=== PATIENT | female | born 1960 | race Caucasian/White ===

== ENCOUNTER 2020-10-11 14:54 | Outpatient (REF) | payer MEDICAID, SELFPAY ==
--- NOTE | 2020-10-11 | US_ITS ---
EXAMINATION: US THYROID CLINICAL INFORMATION: Nontoxic multinodular goiter. COMPARISON: Ultrasound-guided thyroid aspiration October [address] of the cervical spine August 2019 TECHNIQUE: Linear transducer alanis-scale and color Doppler examination with attention to the region of the thyroid. FINDINGS: SIZE: Measurements of the thyroid lobes and nodules are given in sagittal, anteroposterior and transverse dimensions respectively. Right Thyroid Lobe: 5.6 x 2.5 x 3.0 cm, volume 23.0 mL. Parenchyma: The gland echotexture is heterogeneous. Thyroid vascularity is increased. Left Thyroid Lobe: 4.3 x 1.4 x 1.7 cm, volume 5.4 mL. Parenchyma: The gland echotexture is heterogeneous. Thyroid vascularity is normal. Isthmus: 0.4 cm in maximum AP dimension. RIGHT THYROID LOBE: There are 2 nodules seen. 1. Location: Superior. Size: 0.5 x 0.4 x 0.6 cm. Nodule characteristics: Hypoechoic and heterogeneous, smooth margin, no calcification and no intranodular flow. 2. Location: Mid and inferior. Size: 3.9 x 2.5 x 2.6 cm. Nodule characteristics: Heterogeneous, smooth margin with hypoechoic rind, no calcification and positive intranodular flow. ISTHMUS: No nodules. LEFT THYROID LOBE: There is 1 nodule seen. 1. Location: Middle. Size: 0.8 x 0.5 x 0.6 cm. Nodule characteristics: Hypoechoic and heterogeneous, smooth margin, no calcification and minimal peripheral flow. NODES: No lymphadenopathy is seen in the tissue surrounding the thyroid gland. US/US thyroid IMPRESSION: Heterogeneous thyroid gland. Enlarged right lobe. Large right thyroid nodule in the mid and inferior right lobe. This does not appear appreciably changed in size from thyroid aspiration images or cervical spine CT from October 2019 and August 2019. Other smaller thyroid nodules were not appreciated and are difficult to compare.
== END 2020-10-11 14:55 | disposition home or self-care (01) ==
LOC: HO.US 14:54
PROVIDERS: PCP Internal Medicine; Visit Provider Internal Medicine Endocrinology, Diabetes & Metabolism
DX: E04.2 Nontoxic multinodular goiter (principal)
CPT/HCPCS: 76536

== ENCOUNTER → 2020-10-27 12:33 | Outpatient (BNVA) | payer MEDICAID, SELFPAY | PROVIDERS: PCP Internal Medicine; Referring Provider Internal Medicine; Visit Provider Internal Medicine Endocrinology, Diabetes & Metabolism | DX: E04.2 Nontoxic multinodular goiter (principal); E55.9 Vitamin D deficiency, unspecified | CPT/HCPCS: 99212 ==

== ENCOUNTER 2024-04-02 09:23 | Outpatient (AMB) | payer OTHER, SELFPAY ==
--- NOTE | 2024-04-02 09:25 | A.OFFVIS_ITS ---
Vital Signs 04/02/24 09:27 Height 5 ft 7 in Weight 230 lb BMI 36.0 BP 143/70 H Blood Pressure Location Lt brachial Position Sitting Respiration 14 Pulse 85 Pulse Source Pulse Oximeter Pulse Oximetry (%) 95 Oxygen Delivery Method Room Air Intake Visit Reasons: low back/right hip pain Allergies No Known Allergies [No Known Allergies*] Allergy (Verified 04/02/24 09:28) Medication List - Last Reconciled 04/02/24 by Anisha Griffin LPN cholecalciferol (vitamin D3) 25 mcg PO DAILY gabapentin 300 mg PO BID PRN lisinopril-hydrochlorothiazide 10-12.5 mg 1 tab PO BEDTIME tramadol 50 mg PO BID PRN HPI HPI low back/right hip pain: Details: 63-year-old female who presents today to the office for an evaluation of low back pain and right hip pain. She has a fluctuating history of issues in her neck/left shoulder, as well as the right lower back in the hip that radiates down the right leg. The surgical history is notable for the right proximal fibular enchondroma. She also had a C5-6 ACDF in 2000, followed by an acromionectomy surgery and a subdeltoid bursectomy of the left shoulder in 2001. She now complains of several weeks of worsening right lower back and leg pain that is worse with activity and movements. It is rated at 7-8/10 intensity on average. She has also been complaining of her legs feeling weak and her knees giving out. She has been having difficulty climbing stairs or sitting on the chairs. She also complains of left-neck pain that radiates to her left arm and forearm, associated with pins and needles, and a numbness sensation in her left hand. She has not done any physical therapy in the past. She has not completed any MRI scans recently. 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 Her job required prolonged sitting. She has not worked for the last couple weeks. She is currently on vacation for the summer. [facility] Medical History (Updated 04/05/24 @ 09:01 by Rafael Sands MD) Vitamin D deficiency Celiac disease Non-toxic multinodular goiter Surgical History (Updated 10/27/20 @ 13:09 by ALLEGRA Munguia) Hx of rotator cuff surgery Hx of laminectomy Family History (Updated 10/27/20 @ 13:09 by ALLEGRA Munguia) Father HTN (hypertension) Mother HTN (hypertension) Review of Systems Const All systems reviewed & are unremarkable except as noted in HPI and below Physical Exam Vital Signs: Last Vital Signs Pulse 85 04/02/24 09:27 Resp 14 04/02/24 09:27 BP 143/70 H 04/02/24 09:27 Pulse Ox 95 04/02/24 09:27 Oxygen Delivery Method Room Air 04/02/24 09:27 BMI result Body Mass Index 36.0 General: Appears afebrile. Alert and oriented. Mood and affect appropriate. Follows and participates in conversation appropriately. Respiratory effort is unlabored. Able to transition from sit to stand unassisted. Ambulates with bilaterally normal heel strike and toe off. Straight?leg?raises?positive?on?the?right. Tenderness on palpation overlaying?the?right greater trochanteric bursa. Office Procedures Joint Injection/Drain Joint Injection/Drain Details: Greater Trochanteric Bursa Injection, right, ultrasound guided. After informed written consent was obtained, the patient was placed in the lateral position. Pre-procedure oxygen saturation, heart rate, and blood pressure were recorded. The skin was prepped with Chloroprep, and draped in a sterile fashion. With the use of ultrasound, the greater trochanter was identified. A 21-gauge 80 mm needle was then advanced toward the trochanteric bursa under ultrasound visualization. Once in position, and after negative aspiration, 40 mg of Kenalog mixed with 0.5% ropivacaine (3mL total) was injected. There was no evidence of paresthesia throughout needle placement. The needle was withdrawn. The patient tolerated the procedure well and there was no evidence of procedural complications. The patient was observed in the procedure room for 20 minutes, vitals were stable, and discharged in stable condition. Coding Details: ?An ultrasound image of the injection was taken and stored in the permanent record. 89056 - Glenohumeral/Tronchanteric Bursa/Intraarticular (right, US guided) Procedure code (CPT) selection complete Results Reviewed Results Reviewed: No imaging is available for review. Assessment & Plan Assessment & Plan (1) Greater trochanteric pain syndrome: Code(s): M25.559 - Pain in unspecified hip Category: Medical (2) Lumbar radiculopathy: Code(s): M54.16 - Radiculopathy, lumbar region Category: Medical Plan I suspect that her pain in the back is due to nerve impingement/disc degeneration. She will continue physical therapy for 6-8 weeks. She?already?has?an?order?from?her?PCP.?If her pain continues to persist, we will order an MRI scan of the lumbar spine for further evaluation. Follow up in six weeks. If her pain symptoms improve with physical therapy, I will recommend continuing the physical therapy.? Patient is status post right GTB injection, US guided. Patient tolerated procedure well and was discharged home in stable condition with discharge instructions.? All questions were answered. Scribed for Dr. Sands by Edgardo Ding, medical advisor, on 04/02/2024. I, Dr. Sands, have personally reviewed and agree with the information entered by the scribe. Coding Level of Care Code New Pt Level 4 (28446) Diagnoses Greater trochanteric pain syndrome M25.559 Lumbar radiculopathy M54.16 CPT Codes Coding - Joint 7: 58016 - Glenohumeral/Tronchanteric Bursa/Intraarticular ([id number])
[2024-04-02 09:27] VITALS: BP 143/70; PULSE 85; RESP 14; O2SAT 95; BMI 36.0
== END 2024-04-02 10:19 | disposition home or self-care (01) ==
PROVIDERS: PCP Internal Medicine; Visit Provider Internal Medicine
DX: M25.551 Pain in right hip (principal)
CPT/HCPCS: 20611; 99204

== ENCOUNTER → 2024-04-02 09:23 | Outpatient (BNVA) | payer OTHER, SELFPAY | PROVIDERS: PCP Internal Medicine; Visit Provider Internal Medicine | DX: M25.551 Pain in right hip (principal); M54.16 Radiculopathy, lumbar region | CPT/HCPCS: 20611; 99202; J2795; J3301 ==

== ENCOUNTER 2024-04-26 12:36 | Outpatient (AMB) | payer OTHER, SELFPAY ==
--- NOTE | 2024-04-26 12:57 | A.OFFVIS_ITS ---
Vital Signs 04/26/24 12:58 Height 5 ft 7 in Weight 229 lb 0.964 oz BMI 35.9 BP 120/84 Blood Pressure Location Lt brachial Position Sitting Pulse 67 Pulse Source Pulse Oximeter Intake Visit Reasons: Multinodular goiter-confirmed Intake Note: Patient present today for Multi nodular goiter follow up visit. [employer] Required: No Accompanied by: Self / Same As Patient Allergies No Known Allergies [No Known Allergies*] Allergy (Verified 04/26/24 13:04) Medication List - Last Reconciled 04/26/24 by Luis Nath MD cholecalciferol (vitamin D3) 25 mcg PO DAILY gabapentin 300 mg PO BID PRN lisinopril-hydrochlorothiazide 10-12.5 mg 1 tab PO BEDTIME tramadol 50 mg PO BID PRN HPI Comments Details: 63-year-old female, today for follow-up visit, she was last seen on 10/22/2019 for nontoxic multinodular goiter. The patient last saw Dr. Roger on 10/27/2020 She is feeling well, she has no complaints. She had a fine-needle aspiration right side nodule 4.2 x 2.6 x 3 cm on 10/07/2019 which is consistent with benign follicular nodule Creswell category 2. She has past medical history of obesity, celiac disease, vitamin-D deficiency. Cervical disc disease status post fusion. She reports that since last summer she has been feeling tired, achy. She also had some heat intolerance. She denies denies cold or heat intolerance, she lost 7 lb since last visit. She is postmenopausal, she denies diarrhea, constipation, imsomnia, positive fatigue, positive dry skin, she denies dysphagia, dyspnea, dysphonia, d enies tremors, she reports occasional palpitations, denies irritability, anxiety. She reports not been 100% adherent to the gluten free diet. Family History: There is no family history of thyroid disease or nodules. 10/11/2020 US THYROID Right Thyroid Lobe: 5.6 x 2.5 x 3.0 cm, volume 23.0 mL. Parenchyma: The gland echotexture is heterogeneous. Thyroid vascularity is increased. Left Thyroid Lobe: 4.3 x 1.4 x 1.7 cm, volume 5.4 mL. Parenchyma: The gland echotexture is heterogeneous. Thyroid vascularity is normal. Isthmus: 0.4 cm in maximum AP dimension. RIGHT THYROID LOBE: There are 2 nodules seen. 1. Location: Superior. Size: 0.5 x 0.4 x 0.6 cm. Nodule characteristics: Hypoechoic and heterogeneous, smooth margin, no calcification and no intranodular flow. 2. Location: Mid and inferior. Size: 3.9 x 2.5 x 2.6 cm. Nodule characteristics: Heterogeneous, smooth margin with hypoechoic rind, no calcification and positive intranodular flow. ISTHMUS: No nodules. LEFT THYROID LOBE: There is 1 nodule seen. 1. Location: Middle. Size: 0.8 x 0.5 x 0.6 cm. Nodule characteristics: Hypoechoic and heterogeneous, smooth margin, no calcification and minimal peripheral flow. NODES: No lymphadenopathy is seen in the tissue surrounding the thyroid gland. Laboratory Tests 08/26/19 08/26/19 12:18 12:18 Free T4 1.01 TSH 3rd Generation 1.60 Thyroglobulin Antibody <1 Thyroid Peroxidase Ab 2 [facility] Medical History (Updated 04/05/24 @ 09:01 by Rafael Sands MD) Vitamin D deficiency Celiac disease Non-toxic multinodular goiter Surgical History (Updated 10/27/20 @ 13:09 by ALLEGRA Munguia) Hx of rotator cuff surgery Hx of laminectomy Family History (Updated 10/27/20 @ 13:09 by ALLEGRA Munguia) Father HTN (hypertension) Mother HTN (hypertension) Physical Exam Vital Signs: Last Vital Signs Pulse 67 04/26/24 12:58 BP 120/84 04/26/24 12:58 BMI result Body Mass Index 35.9 Const Other: Thyroid gland is normal size weighs about 15 g. The right lobe is full to palpation Assessment & Plan Assessment & Plan (1) Non-toxic multinodular goiter: Code(s): E04.2 - Nontoxic multinodular goiter Category: Medical Plan: This 63-year-old white female with a history of multinodular goiter with a dominant right thyroid nodule status post FNA in 2019 with benign cytology. She appears to be clinically euthyroid. Recent thyroid ultrasound [facility] in last year shows stability in the size of the nodule Plan is to check TSH and free T4. . Will have patient follow up with Dr. Kim who starting in May 2024 as expert and thyroid ultrasound to determine if repeat biopsy is necessary or simply observation Orders: Orders Free T4 (Free Thyroxine) 04/25/24 E04.2 - Nontoxic multinodular goiter Thyroid Stimulating Hormone 04/25/24 E04.2 - Nontoxic multinodular goiter Coding Level of Care Code Est Pt Level 3 (63624) Diagnoses Non-toxic multinodular goiter E04.2
[2024-04-26 12:58] VITALS: BP 120/84; PULSE 67; BMI 35.9
== END 2024-04-26 13:23 | disposition home or self-care (01) ==
PROVIDERS: PCP Internal Medicine; Visit Provider Internal Medicine Endocrinology, Diabetes & Metabolism
DX: E04.2 Nontoxic multinodular goiter (principal)
CPT/HCPCS: 99213

== ENCOUNTER → 2024-04-26 12:36 | Outpatient (BNVA) | payer OTHER, SELFPAY | PROVIDERS: PCP Internal Medicine; Visit Provider Internal Medicine Endocrinology, Diabetes & Metabolism | DX: E04.2 Nontoxic multinodular goiter (principal) | CPT/HCPCS: 99212 ==

== ENCOUNTER 2024-05-11 14:33 | Outpatient (REF) | payer OTHER, SELFPAY ==
--- NOTE | ~2024-05-11 | US_ITS ---
EXAMINATION: US THYROID CLINICAL INFORMATION: Nontoxic multinodular goiter. COMPARISON: Thyroid ultrasound 10/11/2020. Ultrasound-guided thyroid biopsy 10/07/2019. TECHNIQUE: Linear transducer grayscale and color Doppler examination with attention to the region of the thyroid. FINDINGS: SIZE: Measurements of the thyroid lobes and nodules are given in sagittal, anteroposterior and transverse dimensions respectively. Right Thyroid Lobe: 5.9 x 2.6 x 2.9 cm, volume 22.8 mL. Previously 5.6 x 2.5 x 3.0 cm, volume 23.0 mL. Parenchyma: The gland echotexture is homogeneous. Thyroid vascularity is increased. Left Thyroid Lobe: 4.8 x 1.3 x 1.6 cm, volume 5.3 mL. Previously 4.3 x 1.4 x 1.7 cm, volume 5.4 mL. Parenchyma: The gland echotexture is homogeneous. Thyroid vascularity is normal. Isthmus: 0.3 cm in maximum AP dimension. Previously 0.4 cm. Estimated total number of nodules greater than or equal to 1 cm: 1. Manager Of Internal nodules are described as follows: 1. Location: Right superior. Size: 0.7 x 0.5 x 0.8 cm, volume 0.1 mL. Previously: 0.5 x 0.4 x 0.6 cm, volume 0.1 mL. Nodule characteristics: Composition: Mixed cystic and solid (1). Echogenicity: Hypoechoic (2). Shape: Not taller than wide (0). Margins: Smooth (0). Echogenic Foci: None (0). ACR TI-RADS total points: 3 ACR TI-RADS category: 3 Significant change in size (>/= 20% in 2 dimensions and minimal increase of 2 mm or 50% or greater increase in volume): no Change in features: no Change in ACR TI-RADS risk category: not applicable 2. Location: Right mid. Size: 2.8 x 2.4 x 3.5 cm, volume 12.2 mL. Previously: 3.9 x 2.5 x 2.6 cm, volume 13.3 mL. Nodule characteristics: Composition: Solid/almost completely solid (2). Echogenicity: Isoechoic (1). Shape: Not taller than wide (0). Margins: Smooth (0). Echogenic Foci: None (0). ACR TI-RADS total points: 3 ACR TI-RADS category: 3 Significant change in size (>/= 20% in 2 dimensions and minimal increase of 2 mm or 50% or greater increase in volume): no Change in features: no Change in ACR TI-RADS risk category: not applicable 3. Location: Left mid/inferior. Size: 0.9 x 0.6 x 1.1 cm, volume 0.3 mL. Previously: 0.8 x 0.5 x 0.6 cm, volume 0.1 mL. Nodule characteristics: Composition: Mixed cystic and solid (1). Echogenicity: Hypoechoic (2). Shape: Not taller than wide (0). Margins: Smooth (0). Echogenic Foci: None (0). ACR TI-RADS total points: 3 ACR TI-RADS category: 3 Significant change in size (>/= 20% in 2 dimensions and minimal increase of 2 mm or 50% or greater increase in volume): yes Change in features: no Change in ACR TI-RADS risk category: not applicable NODES: No lymphadenopathy is seen in the tissue surrounding the thyroid gland. US/US thyroid IMPRESSION: Diffusely heterogeneous, enlarged, multinodular thyroid gland. A 3.5 cm right mid TR 3 nodule redemonstrated and meets criteria for biopsy. Fine-needle aspiration recommended if not already performed. Correlation with prior biopsy results recommended to determine further management. ACR TI-RADS RECOMMENDATION REFERENCE: Ultrasound-guided fine-needle aspiration, follow up ultrasound, no further followup. * TR1 (0 point) and TR2 (2 points): No FNA or followup * TR3 (3 points): FNA if more than or equal to 2.5 cm in maximum dimension, follow up ultrasound in 1, 3 and 5 years if 1.5 to 2.4 cm in maximum dimension. * TR4 (4-6 points): FNA if more than or equal to 1.5 cm in maximum dimension, follow up ultrasound in 1, 2, 3 and 5 years if 1 to 1.4 cm in maximum dimension. * TR5 (more than or equal to 7 points): FNA if more than or equal to 1 cm in maximum dimension, follow up ultrasound every year for 5 years if 0.5 to 0.9 cm in maximum dimension. * TR3, TR4 or TR5 nodules that are below the size threshold for follow up receive no followup.
[2024-05-11 16:11] LABS: Free T4 (Free Thyroxine) 1.03 ng/dL (0.71-1.85); Thyroid Stimulating Hormone 1.04 uIU/mL (0.32-4.0)
== END 2024-05-11 14:34 | disposition home or self-care (01) ==
LOC: HO.US 14:33
PROVIDERS: PCP Internal Medicine; Visit Provider Internal Medicine Endocrinology, Diabetes & Metabolism
DX: E04.2 Nontoxic multinodular goiter (principal)
CPT/HCPCS: 36415; 76536; 84439; 84443

== ENCOUNTER 2024-06-21 09:10 | Outpatient (REF) | payer OTHER, SELFPAY ==
--- NOTE | ~2024-06-21 | XR_ITS ---
EXAMINATION: XR BILATERAL HIPS WITH AP PELVIS CLINICAL INFORMATION: Pain in the right hip COMPARISON: X-rays of the hips August 2019 TECHNIQUE: AP and lateral views of each hip axial FINDINGS: Right hip: The hip joint and surrounding bones soft tissues are normal. Left hip: The hip joint and surrounding bone and soft tissues are normal. XR/XR hips SOPHIA min 3V IMPRESSION: RIGHT HIP: Normal. LEFT HIP: Normal. Electronically signed by: Yanick uHnt MD 07/15/2024 07:27 AM EDT RP
--- NOTE | ~2024-06-21 | XR_ITS ---
EXAMINATION: XR KNEE AP STANDING CLINICAL INFORMATION: Pain in right knee. COMPARISON: 08/11/2019. TECHNIQUE: AP standing view of bilateral knees. FINDINGS: AP Standing View Left Knee: Tiny medial and lateral marginal osteophytes. Mild narrowing of medial and lateral compartments. Right Knee: Redemonstration of postoperative findings status post resection of proximal aspect of the fibula down to the midshaft. Redemonstration of suture within the fibular aspect of the tibial metaphysis. Moderate narrowing of the lateral compartment with lateral marginal osteophytes. Faint calcification/chondrocalcinosis in the lateral compartment. XR/XR knee standing BI IMPRESSION: 1. Mild degenerative changes left knee. 2. Moderate degenerative changes right knee. Electronically signed by: Jocelyn Miguel MD 08/11/2024 11:45 AM [facility]IV[facility]
== END 2024-06-21 09:11 | disposition home or self-care (01) ==
LOC: HO.XRAY 09:10
PROVIDERS: PCP Internal Medicine; Visit Provider Internal Medicine
DX: M25.561 Pain in right knee (principal); M25.562 Pain in left knee; M25.551 Pain in right hip; M25.552 Pain in left hip; M54.16 Radiculopathy, lumbar region
CPT/HCPCS: 73522; 73565; 99212

== ENCOUNTER 2024-06-21 09:10 | Outpatient (AMB) | payer OTHER, SELFPAY ==
--- NOTE | 2024-06-21 09:13 | A.OFFVIS_ITS ---
Vital Signs 06/21/24 09:15 Height 5 ft 7 in Weight 229 lb BMI 35.9 BP 122/84 Blood Pressure Location Lt brachial Position Sitting Respiration 16 Pulse 90 Pulse Source Pulse Oximeter Pulse Oximetry (%) 96 Oxygen Delivery Method Room Air Intake Visit Reasons: low back/right hip pain Allergies No Known Allergies [No Known Allergies*] Allergy (Verified 06/21/24 09:17) Medication List - Last Reconciled 06/21/24 by Anisha Griffin LPN cholecalciferol (vitamin D3) 25 mcg PO DAILY lisinopril-hydrochlorothiazide 10-12.5 mg 1 tab PO BEDTIME HPI HPI low back/right hip pain: Details: 63-year-old female who presents today to the office for a low back and right hip pain. The patient reports 60-70% relief following the procedure for three-four weeks. She started physical therapy in April 2024 with minimal benefit for six weeks and eventually stopped due to the fact that it was not helping with pain.? She reports bilateral hips and lower back pain. She has difficulty climbing up and down the stairs as she lives on the second floor. She has occasional tingling in her right leg down the right foot. She is unable to bear weight on her sides as it is bothersome. She had an x-ray of the hips in the past, but the result is not available today to review.? Past procedures 04/02/2024: Greater Trochanteric Bursa Injection, right, ultrasound guided: 60- 70% relief 3-4 weeks. [facility] Medical History (Updated 06/21/24 @ 09:53 by Rafael Sands MD) Vitamin D deficiency Celiac disease Non-toxic multinodular goiter Surgical History Hx of rotator cuff surgery Hx of laminectomy Family History Father HTN (hypertension) Mother HTN (hypertension) Review of Systems Const All systems reviewed & are unremarkable except as noted in HPI and below Physical Exam Vital Signs: Last Vital Signs Pulse 90 06/21/24 09:15 Resp 16 06/21/24 09:15 BP 122/84 06/21/24 09:15 Pulse Ox 96 06/21/24 09:15 Oxygen Delivery Method Room Air 06/21/24 09:15 BMI result Body Mass Index 35.9 General: Appears afebrile. Alert and oriented. Mood and affect appropriate. Follows and participates in conversation appropriately. Respiratory effort is unlabored. Able to transition from sit to stand unassisted. Ambulates with bilaterally normal heel strike and toe off. Results Reviewed Results Reviewed: No imaging is available for review. Assessment & Plan Assessment & Plan (1) Bilateral hip pain: Code(s): M25.551 - Pain in right hip; M25.552 - Pain in left hip Category: Medical (2) Bilateral knee pain: Code(s): M25.561 - Pain in right knee; M25.562 - Pain in left knee Category: Medical (3) Lumbar radiculopathy: Code(s): M54.16 - Radiculopathy, lumbar region Category: Medical Plan I ordered an MRI scan of the lumbar spine and an x-ray of the knee and hips today for further evaluation of her pain symptoms not responsive to 6 weeks of guided physical therapy. She will follow up after imaging. The patient will receive a call to schedule an appointment for MRI scan. Scribed for Dr. Sands by Edgardo Ding, medical office asst, on 06/21/2024. I, Dr. Sands, have personally reviewed and agree with the information entered by the scribe. Orders: Orders MR lumbar spine wo con 06/21/24 M54.16 - Radiculopathy, lumbar region XR hips SOPHIA min 3V 06/21/24 M25.551 - Pain in right hip, M25.552 - Pain in left hip XR knee standing BI 06/21/24 M25.561 - Pain in right knee, M25.562 - Pain in left knee Coding Level of Care Code Est Pt Level 3 (13946) Diagnoses Bilateral hip pain M25.551; M25.552 Bilateral knee pain M25.561; M25.562 Lumbar radiculopathy M54.16
[2024-06-21 09:15] VITALS: BP 122/84; PULSE 90; RESP 16; O2SAT 96; BMI 35.9
== END 2024-06-21 09:56 | disposition home or self-care (01) ==
LOC: HO.PMC 09:10
PROVIDERS: PCP Internal Medicine; Visit Provider Internal Medicine
DX: M25.551 Pain in right hip (principal); M25.552 Pain in left hip; M25.561 Pain in right knee; M25.562 Pain in left knee; M54.16 Radiculopathy, lumbar region
CPT/HCPCS: 99213

== ENCOUNTER → 2024-07-16 17:42 | Outpatient (BNV) | payer OTHER, SELFPAY | PROVIDERS: PCP Internal Medicine; Visit Provider Radiology Diagnostic Radiology | DX: M54.16 Radiculopathy, lumbar region (principal) | CPT/HCPCS: 72148 ==

== ENCOUNTER 2024-07-16 17:57 | Outpatient (REF) | payer OTHER, SELFPAY ==
--- NOTE | ~2024-07-16 | MR_ITS ---
EXAMINATION: MR LUMBAR SPINE WITHOUT CONTRAST CLINICAL INFORMATION: Radiculopathy, lumbar region. COMPARISON: None available. Correlated to x-ray dated August 11, 2019. TECHNIQUE: MRI of the lumbar spine was obtained using routine sequences without contrast. FINDINGS: Submitted for interpretation on September 14, 2024. Last rib-bearing vertebra labeled T12. Castellvi type II sacralization. Bone marrow inhomogeneity. No bone marrow STIR signal abnormality. Multilevel marginal osteophyte formation and disc desiccation. There is a subtle grade 1 anterolisthesis L4-5. The conus medullaris and at inferior endplate of L1 with normal signal. T11-12: No disc herniation. No neuroforamina stenosis. T12-L1: No disc herniation. No neuroforamina stenosis. L1-2: Left subarticular broad-based disc herniation. No compression upon neural elements. L2-3: Broad-based disc bulging. Facet joint hypertrophy. No central spinal canal stenosis. Bilateral neuroforamina narrowing. L3-4: Broad-based disc bulging. Facet joint hypertrophy. Reduced AP diameter of the thecal sac and neuroforamina. No compression upon neural elements. L4-5: Broad-based disc bulging. Facet joint hypertrophy. No compression upon neural elements. L5-S1: Transitional/sacralized vertebra. No compression upon neural elements. No prevertebral compartment hematoma, mass or fluid collection. Hyperintense T2 lesions in the left kidney. MR/MR lumbar spine wo con IMPRESSION: Multilevel spondylosis without acute fracture or compression upon neural elements. Electronically signed by: Gerson Rosas MD 09/14/2024 01:20 PM [facility]
== END 2024-07-16 17:58 | disposition home or self-care (01) ==
LOC: HO.MRI 17:57
PROVIDERS: PCP Internal Medicine; Visit Provider Internal Medicine
DX: M54.16 Radiculopathy, lumbar region (principal)
CPT/HCPCS: 72148

== ENCOUNTER 2024-07-26 11:19 | Outpatient (AMB) | payer OTHER, SELFPAY ==
--- NOTE | 2024-07-26 11:22 | A.OFFVIS_ITS ---
Vital Signs 07/26/24 11:23 Height 5 ft 7 in Weight 225 lb BMI 35.2 BP 126/82 Blood Pressure Location Lt brachial Position Sitting Respiration 16 Pulse 89 Pulse Source Pulse Oximeter Pulse Oximetry (%) 98 Oxygen Delivery Method Room Air Intake Visit Reasons: MRI FU Allergies No Known Allergies [No Known Allergies*] Allergy (Verified 07/26/24 11:24) Medication List - Last Reconciled 07/26/24 by Anisha Griffin LPN cholecalciferol (vitamin D3) 25 mcg PO DAILY lisinopril-hydrochlorothiazide 10-12.5 mg 1 tab PO BEDTIME HPI HPI MRI FU: Details: 64-year-old female who presents today to the office for follow up of an MRI scan. She reports tightness and stiffness in her back, especially going down the stairs. She has been doing stretching exercises at home. She had an x-ray done last day. She has tried PT in the past with no relief. She denies any inciting incident or trauma in the past. She had a surgery in . She is trying to lose weight. 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 Past procedures 04/02/2024: Greater Trochanteric Bursa Injection, right, ultrasound guided: 60- 70% relief 3-4 weeks. COUNT INCLUDES THE [facility] Medical History (Updated 08/17/24 @ 14:47 by Rafael Sands MD) Vitamin D deficiency Celiac disease Non-toxic multinodular goiter Surgical History Hx of rotator cuff surgery Hx of laminectomy Family History Father HTN (hypertension) Mother HTN (hypertension) Review of Systems Const All systems reviewed & are unremarkable except as noted in HPI and below Physical Exam Vital Signs: Last Vital Signs Pulse 89 07/26/24 11:23 Resp 16 07/26/24 11:23 BP 126/82 07/26/24 11:23 Pulse Ox 98 07/26/24 11:23 Oxygen Delivery Method Room Air 07/26/24 11:23 BMI result Body Mass Index 35.2 General: Appears afebrile. Alert and oriented. Mood and affect appropriate. Follows and participates in conversation appropriately. Respiratory effort is unlabored. Able to transition from sit to stand unassisted. Ambulates with bilaterally normal heel strike and toe off. Lumbar extension and facet loading reproduce pain in her lower back. Results Reviewed Results Reviewed: No radiology interpretation. My personal interpretation is noted. There is multilevel lumbar spondylosis associated with significant facet arthritis and multifidus scarring in the lower lumbar spine. There is no neural compression or compromise at any level. Assessment & Plan Assessment & Plan (1) Bilateral knee pain: Code(s): M25.561 - Pain in right knee; M25.562 - Pain in left knee Category: Medical (2) Lumbar spondylosis: Code(s): M47.816 - Spondylosis without myelopathy or radiculopathy, lumbar region Category: Medical (3) Dysfunction of the multifidus muscle of lumbar region: Code(s): M62.85 - Dysfunction of the multifidus muscles, lumbar region Category: Medical Plan Discussed physical therapy vs. peripheral nerve stimulator vs. cortisone injections as possible treatment options. Will schedule her for bilateral cortisone knee injection, US-guided. Discussed the risks and benefits of the procedure with the patient in detail. All questions were answered. The patient is on board with the plan. For her axial low back pain that appears to be mechanical in nature secondary to facet degeneration and associated multiple atrophy, I recommended a trial of temporary medial branch nerve stimulation in the lumbar spine. We will submit for insurance authorization and proceed with the right side first. I also recommended lifestyle modification, including stretching and strengthening exercises, weight loss, and massages. Justification for interventional therapy: ? Patient with average pain > 6/10 ? Patient has exhausted conservative therapy ? Patient continuing home exercise program . Patient has a good understanding of their pain condition and has appropriate mental and social support Scribed for Dr. Sands by Edgardo Ding, medical asst, on 07/26/2024. I, Dr. Sands, have personally reviewed and agree with the information entered by the scribe. Coding Level of Care Code Est Pt Level 4 (86120) Diagnoses Bilateral knee pain M25.561; M25.562 Lumbar spondylosis M47.816 Dysfunction of the multifidus muscle of lumbar region M62.85
[2024-07-26 11:23] VITALS: BP 126/82; PULSE 89; RESP 16; O2SAT 98; BMI 35.2
== END 2024-07-26 12:06 | disposition home or self-care (01) ==
LOC: HO.PMC 11:19
PROVIDERS: PCP Internal Medicine; Visit Provider Internal Medicine
DX: M25.561 Pain in right knee (principal); M25.562 Pain in left knee; M47.816 Spondylosis without myelopathy or radiculopathy, lumbar region; M62.85 Dysfunction of the multifidus muscles, lumbar region
CPT/HCPCS: 99214

== ENCOUNTER → 2024-07-26 11:19 | Outpatient (BNVA) | payer OTHER, SELFPAY | PROVIDERS: PCP Internal Medicine; Visit Provider Internal Medicine | DX: M25.561 Pain in right knee (principal); M25.562 Pain in left knee; M47.816 Spondylosis without myelopathy or radiculopathy, lumbar region; M62.85 Dysfunction of the multifidus muscles, lumbar region | CPT/HCPCS: 99212 ==

== ENCOUNTER 2024-08-05 06:17 | Outpatient (REF) | payer OTHER, SELFPAY | END 2024-08-05 06:18 | disposition home or self-care (01) | LOC: CF 06:17 | PROVIDERS: Visit Provider Internal Medicine | DX: M25.561 Pain in right knee (principal); M25.562 Pain in left knee | CPT/HCPCS: 20610; 20611; J2003; J2795; J3300; J3301 ==

== ENCOUNTER 2024-08-05 11:39 | Outpatient (AMB) | payer OTHER, SELFPAY ==
[2024-08-05 11:47] VITALS: BP 145/87; PULSE 80; O2SAT 98
--- NOTE | 2024-08-05 11:47 | A.OFFVIS_ITS ---
Vital Signs 08/05/24 11:47 08/05/24 12:27 BP 145/87 H 143/89 H Blood Pressure Location Rt brachial Rt brachial Position Sitting Sitting Pulse 80 96 Pulse Source Pulse Oximeter Pulse Oximeter Pulse Oximetry (%) 98 77 L Oxygen Delivery Method Room Air Room Air Intake Visit Reasons: Todd knee injections Allergies No Known Allergies [No Known Allergies*] Allergy (Verified 07/26/24 11:24) HPI HPI Todd knee injections: Details: Patient presents for scheduled procedure. Denies any recent cough, cold, infection, fever or other significant changes in medical history since last office visit. [facility] Medical History (Updated 06/21/24 @ 09:53 by Rafael Sands MD) Vitamin D deficiency Celiac disease Non-toxic multinodular goiter Surgical History Hx of rotator cuff surgery Hx of laminectomy Family History Father HTN (hypertension) Mother HTN (hypertension) Physical Exam Vital Signs: Last Vital Signs Pulse 96 08/05/24 12:27 BP 143/89 H 08/05/24 12:27 Pulse Ox 77 L 08/05/24 12:27 Oxygen Delivery Method Room Air 08/05/24 12:27 Office Procedures AMB Joint Injection/Aspiration Joint Injection/Aspiration Primary Site: left knee Secondary Site: right knee Prep: site was prepped using sterile technique Injected: 40 mg of, Kenalog, with 3 mL of (0.25% ropivacaine) and in the joint (On each side) Approach Used: other (Ultrasound guided, suprapatellar) Procedure: The patient tolerated the procedure well Coding Details: Images of the ultrasound guided injections were saved to the patient's record. 45578 - Large joint (Bilateral) Procedure code (CPT) selection complete Office Meds Kenalog 40 mg/mL suspension for injection Performing Provider: Rafael Sands MD [place] [facility] [place] [facility] Administered by: Rafael Sands MD on 08/05/24 13:00 Dose Route Admin Location Dispensed Lot Number Expiration Date [facility] [employer] 80 mg intra-articular 2 mL Assessment & Plan Assessment & Plan (1) Bilateral knee pain: Code(s): M25.561 - Pain in right knee; M25.562 - Pain in left knee Category: Medical Plan Patient is status post bilateral ultrasound-guided intra-articular knee injections. Patient tolerated procedure well and was discharged home in stable condition with discharge instructions. All questions were answered. We will follow-up via telephone or in clinic to assess response to therapy. A follow-up appointment was made during today's visit. Orders: Orders US guide needle placement Today Lorie Street, REFRIGERATED CARGO CLERK, VICE PRESIDENT COMPLIANCE M25.561 - Pain in right knee, M25.562 - Pain in left knee AMB Joint Injection/Aspiration Today Rafael Sands MD M25.561 - Pain in right knee, M25.562 - Pain in left knee Medications: New Kenalog (triamcinolone acetonide) 80 mg (2 mL) intra-articular ONCE 2 mL 0RF NS Rafael Sands MD M25.561 - Pain in right knee, M25.562 - Pain in left knee Coding Level of Care Code Procedure Only Diagnoses Bilateral knee pain M25.561; M25.562 CPT Codes Coding - 94158 Large joint: 10774 - Large joint ([id number])
[2024-08-05 12:27] VITALS: BP 143/89; PULSE 96; O2SAT 77
== END 2024-08-05 12:27 | disposition home or self-care (01) ==
LOC: HO.PMCPRC 11:39
PROVIDERS: PCP Internal Medicine; Visit Provider Internal Medicine
DX: M25.561 Pain in right knee (principal); M25.562 Pain in left knee
CPT/HCPCS: 20611

== ENCOUNTER 2024-09-01 09:38 | Outpatient (AMB) | payer OTHER, SELFPAY ==
[2024-09-01 09:48] VITALS: BP 161/87; PULSE 88; O2SAT 95; BMI 34.5
--- NOTE | 2024-09-01 09:48 | MHC.OFFVIS ---
Vital Signs 09/01/24 09:48 Height 5 ft 7 in Weight 220 lb BMI 34.5 BP 161/87 H Blood Pressure Location Rt brachial Position Sitting Pulse 88 Pulse Source Pulse Oximeter Pulse Oximetry (%) 95 Oxygen Delivery Method Room Air Intake Visit Reasons: s/p bassem knee injections Allergies No Known Allergies [No Known Allergies*] Allergy (Verified 09/01/24 09:48) Medication List - Last Reconciled 09/01/24 by Alisa Wray cholecalciferol (vitamin D3) 25 mcg PO DAILY lisinopril-hydrochlorothiazide 10-12.5 mg 1 tab PO BEDTIME HPI HPI s/p bassem knee injections: Details: 64-year-old female who presents to the office today for status post bilateral ultrasound-guided intra-articular knee injections. The patient reports >50% relief following the procedure. She reports she still continues to have stiffness in the knees upon waking up in the morning which is bothersome. She has been doing stretches and exercises at home. She notices her knee pain has improved and experiences no pain in the knee on some days. She reports having axial low back pain for which we discussed a trial of temporary medial branch nerve stimulation in the lumbar spine as a possible treatment option at her last visit. Our initial prior authorization request was denied so the case is now pending with [facility] our care. Past procedures 08/05/24: Bilateral ultrasound-guided intra-articular knee injections: >50% relief. 04/02/24: Greater Trochanteric Bursa Injection, right, ultrasound guided: 60-70% relief 3-4 weeks. [facility] Medical History (Updated 08/17/24 @ 14:47 by Raafel Sands MD) Vitamin D deficiency Celiac disease Non-toxic multinodular goiter Surgical History Hx of rotator cuff surgery Hx of laminectomy Family History Father HTN (hypertension) Mother HTN (hypertension) Review of Systems Const All systems reviewed & are unremarkable except as noted in HPI and below Physical Exam Vital Signs: Last Vital Signs Pulse 88 09/01/24 09:48 BP 161/87 H 09/01/24 09:48 Pulse Ox 95 09/01/24 09:48 Oxygen Delivery Method Room Air 09/01/24 09:48 BMI result Body Mass Index 34.5 General: Appears afebrile. Alert and oriented. Mood and affect appropriate. Follows and participates in conversation appropriately. Respiratory effort is unlabored. Able to transition from sit to stand unassisted. Ambulates with bilaterally normal heel strike and toe off. Results Reviewed Results Reviewed: No imaging is available for review. Assessment & Plan Assessment & Plan (1) Dysfunction of the multifidus muscle of lumbar region: Code(s): M62.85 - Dysfunction of the multifidus muscles, lumbar region Category: Medical (2) Lumbar spondylosis: Code(s): M47.816 - Spondylosis without myelopathy or radiculopathy, lumbar region Category: Medical (3) Bilateral knee pain: Code(s): M25.561 - Pain in right knee; M25.562 - Pain in left knee Category: Medical Plan Recommended to continue to do quadriceps stretches and strengthening exercises at home. For her axial low back pain, we are still waiting for insurance authorization for trial of temporary medial branch nerve stimulation in the lumbar spine. Scribed for Dr. Sands by Liam medical coordinator pesticide use, on 09/01/2024. I, Dr. Sands, have personally reviewed and agree with the information entered by the scribe. Coding Level of Care Code Est Pt Level 3 (88700) Diagnoses Dysfunction of the multifidus muscle of lumbar region M62.85 Lumbar spondylosis M47.816 Bilateral knee pain M25.561; M25.562
== END 2024-09-01 10:12 | disposition home or self-care (01) ==
PROVIDERS: PCP Internal Medicine; Visit Provider Internal Medicine
DX: M62.85 Dysfunction of the multifidus muscles, lumbar region (principal); M47.816 Spondylosis without myelopathy or radiculopathy, lumbar region; M25.561 Pain in right knee; M25.562 Pain in left knee
CPT/HCPCS: 99213

== ENCOUNTER → 2024-09-01 09:38 | Outpatient (BNVA) | payer OTHER, SELFPAY | PROVIDERS: PCP Internal Medicine; Visit Provider Internal Medicine | DX: M62.85 Dysfunction of the multifidus muscles, lumbar region (principal); M47.816 Spondylosis without myelopathy or radiculopathy, lumbar region; M25.561 Pain in right knee; M25.562 Pain in left knee | CPT/HCPCS: 99212 ==

== ENCOUNTER 2024-10-25 08:41 | Outpatient (AMB) | payer OTHER, SELFPAY ==
--- NOTE | 2024-10-25 08:42 | MHC.OFFVIS ---
Vital Signs 10/25/24 08:43 Height 5 ft 7 in Weight 230 lb 6.129 oz BMI 36.1 BP 132/80 Blood Pressure Location Lt brachial Position Sitting Pulse 81 Pulse Source Pulse Oximeter Intake Visit Reasons: Multinodular goiter Intake Note: Patient present today for Multinodular goiter office visit. 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 She has past medical history of obesity, celiac disease, vitamin-D deficiency. Cervical disc disease status post fusion. HPI She had a fine-needle aspiration right side nodule 4.2 x 2.6 x 3 cm on 10/07/2019 which is consistent with benign follicular nodule [place] category 2. 10/11/2020 showed stable/smaller size of the dominant right mid inferior lobe nodule measuring 3.9 X 2.5 X 2.6 cm. 05/11/2024, most recent thyroid ultrasound showed even smaller size of the right mid lobe dominant nodule now measuring 2.8 X 2.4 X 3.5 cm. I reviewed the images myself. Biochemically euthyroid, most recent labs May 2024 Reports triedness that has been going on for some time. Post menopausal Bowel movements are regular Weight stable , she denies dysphagia, dyspnea, dysphonia, denies tremors, denies palpitations, denies irritability, anxiety. Family History: There is no family history of thyroid disease or nodules. Physical exam General: sitting comfortably in no acute distress HEENT: normocephalic/atraumatic, moist oral mucosa Neck: supple, palpable 2 cm right sided nodule Cardiac: normal heart sounds Pulm: normal breath sounds B/L, no added breath sounds Abd: not distended, no tenderness Extremities: no edema, no signs of myxedema Laboratory Tests 05/11/24 14:43 TSH 1.04 Free T4 1.03 US THYROID 05/11/24 CLINICAL INFORMATION: Nontoxic multinodular goiter. COMPARISON: Thyroid ultrasound 10/11/2020. Ultrasound-guided thyroid biopsy 10/07/2019. TECHNIQUE: Linear transducer grayscale and color Doppler examination with attention to the region of the thyroid. FINDINGS: SIZE: Measurements of the thyroid lobes and nodules are given in sagittal, anteroposterior and transverse dimensions respectively. Right Thyroid Lobe: 5.9 x 2.6 x 2.9 cm, volume 22.8 mL. Previously 5.6 x 2.5 x 3.0 cm, volume 23.0 mL. Parenchyma: The gland echotexture is homogeneous. Thyroid vascularity is increased. Left Thyroid Lobe: 4.8 x 1.3 x 1.6 cm, volume 5.3 mL. Previously 4.3 x 1.4 x 1.7 cm, volume 5.4 mL. Parenchyma: The gland echotexture is homogeneous. Thyroid vascularity is normal. Isthmus: 0.3 cm in maximum AP dimension. Previously 0.4 cm. Estimated total number of nodules greater than or equal to 1 cm: 1. [employer] [place] nodules are described as follows: 1. Location: Right superior. Size: 0.7 x 0.5 x 0.8 cm, volume 0.1 mL. Previously: 0.5 x 0.4 x 0.6 cm, volume 0.1 mL. Nodule characteristics: Composition: Mixed cystic and solid (1). Echogenicity: Hypoechoic (2). Shape: Not taller than wide (0). Margins: Smooth (0). Echogenic Foci: None (0). ACR TI-RADS total points: 3 ACR TI-RADS category: 3 Significant change in size (>/= 20% in 2 dimensions and minimal increase of 2 mm or 50% or greater increase in volume): no Change in features: no Change in ACR TI-RADS risk category: not applicable 2. Location: Right mid. Size: 2.8 x 2.4 x 3.5 cm, volume 12.2 mL. Previously: 3.9 x 2.5 x 2.6 cm, volume 13.3 mL. Nodule characteristics: Composition: Solid/almost completely solid (2). Echogenicity: Isoechoic (1). Shape: Not taller than wide (0). Margins: Smooth (0). Echogenic Foci: None (0). ACR TI-RADS total points: 3 ACR TI-RADS category: 3 Significant change in size (>/= 20% in 2 dimensions and minimal increase of 2 mm or 50% or greater increase in volume): no Change in features: no Change in ACR TI-RADS risk category: not applicable 3. Location: Left mid/inferior. Size: 0.9 x 0.6 x 1.1 cm, volume 0.3 mL. Previously: 0.8 x 0.5 x 0.6 cm, volume 0.1 mL. Nodule characteristics: Composition: Mixed cystic and solid (1). Echogenicity: Hypoechoic (2). Shape: Not taller than wide (0). Margins: Smooth (0). Echogenic Foci: None (0). ACR TI-RADS total points: 3 ACR TI-RADS category: 3 Significant change in size (>/= 20% in 2 dimensions and minimal increase of 2 mm or 50% or greater increase in volume): yes Change in features: no Change in ACR TI-RADS risk category: not applicable NODES: No lymphadenopathy is seen in the tissue surrounding the thyroid gland. US/US thyroid IMPRESSION: Diffusely heterogeneous, enlarged, multinodular thyroid gland. A 3.5 cm right mid TR 3 nodule redemonstrated and meets criteria for biopsy. Fine-needle aspiration recommended if not already performed. Correlation with prior biopsy results recommended to determine further management. 10/11/2020 US THYROID Right Thyroid Lobe: 5.6 x 2.5 x 3.0 cm, volume 23.0 mL. Parenchyma: The gland echotexture is heterogeneous. Thyroid vascularity is increased. Left Thyroid Lobe: 4.3 x 1.4 x 1.7 cm, volume 5.4 mL. Parenchyma: The gland echotexture is heterogeneous. Thyroid vascularity is normal. Isthmus: 0.4 cm in maximum AP dimension. RIGHT THYROID LOBE: There are 2 nodules seen. 1. Location: Superior. Size: 0.5 x 0.4 x 0.6 cm. Nodule characteristics: Hypoechoic and heterogeneous, smooth margin, no calcification and no intranodular flow. 2. Location: Mid and inferior. Size: 3.9 x 2.5 x 2.6 cm. Nodule characteristics: Heterogeneous, smooth margin with hypoechoic rind, no calcification and positive intranodular flow. ISTHMUS: No nodules. LEFT THYROID LOBE: There is 1 nodule seen. 1. Location: Middle. Size: 0.8 x 0.5 x 0.6 cm. Nodule characteristics: Hypoechoic and heterogeneous, smooth margin, no calcification and minimal peripheral flow. NODES: No lymphadenopathy is seen in the tissue surrounding the thyroid gland. [facility] Medical History (Updated 08/17/24 @ 14:47 by Rafael Sands MD) Vitamin D deficiency Celiac disease Non-toxic multinodular goiter Surgical History Hx of rotator cuff surgery Hx of laminectomy Family History Father HTN (hypertension) Mother HTN (hypertension) Physical Exam Vital Signs: Last Vital Signs Pulse 81 10/25/24 08:43 BP 132/80 10/25/24 08:43 BMI result Body Mass Index 36.1 Assessment & Plan Assessment & Plan (1) Non-toxic multinodular goiter: Code(s): E04.2 - Nontoxic multinodular goiter Category: Medical Plan: 64-year-old white female with a history of multinodular goiter with a dominant right thyroid nodule status post FNA in 2019 with benign cytology. 10/11/2020 showed stable/smaller size of the dominant right mid inferior lobe nodule measuring 3.9 X 2.5 X 2.6 cm. 05/11/2024, most recent thyroid ultrasound showed even smaller size of the right mid lobe dominant nodule now measuring 2.8 X 2.4 X 3.5 cm. I reviewed the images myself. Biochemically euthyroid, most recent labs May 2024 We will plan to repeat ultrasound in 1 year from the last 1 in May 2025, if that shows stable/smaller size of the nodule we can repeat another 1 in 2 years. Plan: -ordered thyroid ultrasound for May 2025 -ordered TSH with reflex T4 for May 2025 -follow up in June 2025 Plan See above Orders: Orders US thyroid 05/09/25 E04.2 - Nontoxic multinodular goiter TSH reflex Free T4 05/09/25 E04.2 - Nontoxic multinodular goiter Patient Instructions: Do thyroid blood work in may 2025 Do thyroid ultrasound in May 2025, someone will call you to schedule this Follow up in June 2025 Coding Level of Care Code Est Pt Level 3 (81403) Diagnoses Non-toxic multinodular goiter E04.2
[2024-10-25 08:43] VITALS: BP 132/80; PULSE 81; BMI 36.1
== END 2024-10-25 09:07 | disposition home or self-care (01) ==
PROVIDERS: PCP Internal Medicine; Visit Provider Student in an Organized Health Care Education/Training Program
DX: E04.2 Nontoxic multinodular goiter (principal)
CPT/HCPCS: 99213

== ENCOUNTER → 2024-10-25 08:41 | Outpatient (BNVA) | payer OTHER, SELFPAY | PROVIDERS: PCP Internal Medicine; Visit Provider Student in an Organized Health Care Education/Training Program | DX: E04.2 Nontoxic multinodular goiter (principal) | CPT/HCPCS: 99212 ==

== ENCOUNTER 2024-11-15 11:05 | Outpatient (AMB) | payer OTHER, SELFPAY ==
--- NOTE | 2024-11-15 11:09 | MHC.OFFVIS ---
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 She reports ongoing discomfort in her lower back, knees, and right hip. The knee pain was previously addressed with injections; however, insurance refusals have complicated further treatment escalation. Her history includes surgical intervention on the knees, yet bilateral knee pain persists, indicating perhaps multifactorial origins for her discomfort. Facet joint arthropathy and arthritis are documented in the lumbar region, influencing the current level of pain. Previous physical therapy was not significantly beneficial. Cycle through lumbar flexion and extension movements reproduces pain, particularly with lumbar extension. The emphasis now involves confirming the involvement of spinal factors with diagnostic nerve blocks, which, if fruitful, may transition into radiofrequency ablation treatment. Pain Description - Onset & Timing: Chronic and longstanding - Quality & Character: Pain is reported as aching and radiating - Primary Location: Right hip, lumbar spine, bilateral knees - Exacerbating Factors: Lumbar extension and specific positional movements - Relieving Factors: Prior injections, though limited and temporary - Impact on Activities: Ongoing pain hinders day-to-day activities Physical Exam - Musculoskeletal- Lumbar extension reproduces pain in the lower back; Facet loading on both left and right sides reproduces pain in the lower back. Pain Management - Affect: Pain impacts mood and general well-being - Analgesia: Current treatments have included knee injections; considering radiofrequency ablation - Adverse Effects: None reported from current management strategy - Activities of Daily Living: Pain notably impacts daily function - Aberrant Drug-Related Behaviors: None observed or reported [facility] Medical History (Updated 08/17/24 @ 14:47 by Rafael Sands MD) Vitamin D deficiency Celiac disease Non-toxic multinodular goiter Surgical History Hx of rotator cuff surgery Hx of laminectomy Family History Father HTN (hypertension) Mother HTN (hypertension) Physical Exam Vital Signs: Last Vital Signs Pulse 81 11/15/24 11:11 Resp 16 11/15/24 11:11 BP 140/78 H 11/15/24 11:11 Pulse Ox 97 11/15/24 11:11 Oxygen Delivery Method Room Air 11/15/24 11:11 BMI result Body Mass Index 34.9 Assessment & Plan Assessment & Plan (1) Lumbar spondylosis: Code(s): M47.816 - Spondylosis without myelopathy or radiculopathy, lumbar region Category: Medical Plan Plan The patient's management plan involves performing diagnostic nerve blocks at bilateral L3, L4 medial branches, and the L5 dorsal ramus to assess possible facet joint contribution to her chronic pain. If these initial blocks yield a positive response, radiofrequency ablation will be considered to achieve prolonged pain relief. This approach is contingent upon insurance approval and aims to provide 6 to 12 months of relief. Addressing the spinal contribution versus intrinsic knee and hip core issues remains a critical goal, aiding in management planning and further intervention. Patient was informed and verbally consented to the use of an ambient scribe for clinic note documentation during this visit. Discussion Notes I detailed the potential benefits of radiofrequency ablation, including its ability to offer extended pain relief following successful diagnostic nerve blocks. I explained the necessity of a positive outcome from test blocks twice to secure insurance consent for the ablation procedure. Potential risks, benefits, and outcomes were communicated, with the patient agreeing to proceed once approvals are obtained. Follow-ups were planned contingent upon initial procedure results, and anticipated involving comprehensive pain management. Patient Instructions - Await contact for scheduling test injections pending insurance approval. - Monitor symptoms and report any significant changes in pain severity. - Avoid activities that exacerbate lumbar spine pain until further interventions. Coding Level of Care Code Est Pt Level 4 (35390) Diagnoses Lumbar spondylosis M47.816
[2024-11-15 11:11] VITALS: BP 140/78; PULSE 81; RESP 16; O2SAT 97; BMI 34.9
== END 2024-11-15 11:26 | disposition home or self-care (01) ==
PROVIDERS: PCP Internal Medicine; Visit Provider Internal Medicine
DX: M47.816 Spondylosis without myelopathy or radiculopathy, lumbar region (principal)
CPT/HCPCS: 99214

== ENCOUNTER → 2024-11-15 11:05 | Outpatient (BNVA) | payer OTHER, SELFPAY | PROVIDERS: PCP Internal Medicine; Visit Provider Internal Medicine | DX: M47.816 Spondylosis without myelopathy or radiculopathy, lumbar region (principal) | CPT/HCPCS: 99212 ==

== ENCOUNTER 2025-05-16 07:44 | Outpatient (REF) | payer OTHER, SELFPAY ==
--- NOTE | ~2025-05-16 | US_ITS ---
EXAMINATION: US THYROID HISTORY: E04.2 - Nontoxic multinodular goiter TECHNIQUE: Real-time grayscale ultrasound imaging was performed and images were reviewed. COMPARISON: Comparison is made with the prior examination dated 05/11/2024. FINDINGS: SIZE: The right thyroid lobe measures 5.7 x 2.5 x 3.0 cm. The left thyroid lobe measures 4.6 x 1.3 x 1.6 cm. The isthmus measures 2 mm. FLOW: Flow to the gland is normal. ECHOGENICITY: The echotexture of the gland is homogeneous. NODULES: Again seen is an 8 x 5 x 8 mm spongiform nodule at the upper pole of the right thyroid lobe and a 10 x 6 x 8 mm spongiform nodule at the upper pole of the left thyroid lobe. A dominant nodule in the mid to lower portion of the right thyroid lobe is again noted as described below: Nodule #: 1 Location: Mid to lower pole of the right thyroid lobe measuring 3.8 x 2.4 x 2.5 cm (previously 3.5 x 2.4 x 2.8 cm). Shape: Wider than tall (0 points) Margins: Smooth (0 points) Echotexture: Isoechoic (1 point) Composition: Solid (2 points) Calcifications: None (0 points) Total points: 3 TIRADS: TR3: Mildly suspicious. US/US thyroid IMPRESSION: Stable dominant nodule at the lower pole of the right thyroid lobe as described. ACR TI-RADS Guidelines TR1 (0 points): Benign. No follow-up or biopsy required TR2 (2 points): Not Suspicious. No biopsy or follow up indicated TR3 (3 points): Mildly Suspicious. FNA if >= 2.5 cm, Follow if >= 1.5 cm TR4 (4-6 points): Moderately Suspicious. FNA if >= 1.5 cm, Follow if >= 1.0 cm TR5 (>=7 points): Highly Suspicious. FNA if >= 1.0 cm, Follow if >= 0.5 cm Electronically signed by: Luis Avalos MD 05/16/2025 09:41 AM EDT
--- OUTSIDE RECORDS SUMMARY | 2025-05-16 07:47 | XMS_ITS | Patient Health Record ---
Author Organization [facility] Address [address] [place] [address] Care Team Providers Care Debeaker Name Role Phone Edna Roberts MD Primary Care Provider Unava ilable Amanda Major Unavailable [phone] Reason For Referral No Information Medications Medication SIG (Take, Route, Frequency, Duration) Notes Start Date End Date Status Advil 200 MG 1 tablet as needed Orally every 6 hrs Active Work Note . . . .; Duration: . Active Problems Problem Type SNOMED Code ICD Code Onset Dates Problem Status W/U Status Risk Notes Problem Bursitis (55573334) Bursitis (727.3) Active confirmed Problem Onychomycosis (030365136) Onychomycosis (110.1) Active confirmed Problem Myositis (09561509) Myositis (729.1) Active confirmed Problem Pain in limb (55045883) Pain in Limb (729.5) Active confirmed Problem Plantar fasciitis (768097664) Plantar Fasciitis (728.71) Active confirmed Plan Of Treatment Pending Test Test Name Order Date X ray : Foot, left 2V 01/01/201219731,[id number] TENDON SHEATH/LIGAMENT 0 02/03/201284212,[id number] TENDON SHEATH/LIGAMENT 0 02/27/201295112,[id number] TENDON SHEATH/LIGAMENT 0 01/01/2012 Insurance Providers Payer Name Payer Address Payer Phone Subscriber Number Group Number Insured Name Patient Relationship to Insured Coverage Start Date Coverage End Date [facility] [address] [place] [address] [id number] Liza Mesa Self - patient is the insured Medical (General) History Medical History History ICD Code anemia Arthritis back, hip, knee pain fibromyalgia osteoporosis psoriasis/eczema chicken pox celiac disease Surgical History Surgery Date(Month/Year) neck surgery 07/2001 rotator cuff tear repair 05/2002
== END 2025-05-16 07:45 | disposition home or self-care (01) ==
LOC: HO.US 07:44
PROVIDERS: PCP Internal Medicine; Visit Provider Student in an Organized Health Care Education/Training Program
DX: E04.2 Nontoxic multinodular goiter (principal)
CPT/HCPCS: 76536

== ENCOUNTER → 2025-05-16 07:46 | Outpatient (BNV) | payer OTHER, SELFPAY | PROVIDERS: PCP Internal Medicine; Visit Provider Radiology Diagnostic Radiology | DX: E04.2 Nontoxic multinodular goiter (principal) | CPT/HCPCS: 76536 ==

== ENCOUNTER 2025-05-16 08:34 | Outpatient (REF) | payer OTHER, SELFPAY | END 2025-05-16 08:35 | disposition home or self-care (01) | LOC: HO.10HDL 08:34 | PROVIDERS: Visit Provider Student in an Organized Health Care Education/Training Program | DX: E04.2 Nontoxic multinodular goiter (principal) | CPT/HCPCS: 36415; 84443 ==

== ENCOUNTER 2025-06-30 13:33 | Outpatient (AMB) | payer OTHER, SELFPAY ==
[2025-06-30 13:42] VITALS: BP 112/78; PULSE 79; O2SAT 95; BMI 34.7
--- NOTE | 2025-06-30 13:42 | A.OFFVIS_ITS ---
Vital Signs 06/30/25 13:42 Height 5 ft 7 in Weight 221 lb 9.033 oz BMI 34.7 BP 112/78 Blood Pressure Location Lt brachial Position Sitting Pulse 79 Pulse Source Pulse Oximeter Pulse Oximetry (%) 95 Oxygen Delivery Method Room Air Intake Visit Reasons: Multinodular goiter Intake Note: Patient present today for Multinodular goiter office visit. 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 She has past medical history of obesity, celiac disease, vitamin-D deficiency. Cervical disc disease status post fusion. HPI She had a fine-needle aspiration right side nodule 4.2 x 2.6 x 3 cm on 10/07/2019 which is consistent with benign follicular nodule [place] category 2. 10/11/2020 showed stable/smaller size of the dominant right mid inferior lobe nodule measuring 3.9 X 2.5 X 2.6 cm. 05/11/2024, most recent thyroid ultrasound showed even smaller size of the right mid lobe dominant nodule now measuring 2.8 X 2.4 X 3.5 cm. I reviewed the images myself. Biochemically euthyroid, most recent labs May 2024 Reports triedness that has been going on for some time. Post menopausal Bowel movements are regular Weight stable , she denies dysphagia, dyspnea, dysphonia, denies tremors, denies palpitations, denies irritability, anxiety. Family History: There is no family history of thyroid disease or nodules. Interval history 05/16/2025: Ultrasound thyroid shows stable size of the right lower pole 3.8 cm solid isoechoic TR 3 nodule. Even though the left superior pole 1 cm nodule is commented on a spongiform coming to meet appears more like a solid hypoechoic nodule, however it remained stable in size, TR 4 category and we will continue to follow this. Physical exam General: sitting comfortably in no acute distress HEENT: normocephalic/atraumatic, moist oral mucosa Neck: supple, palpable 2 cm right sided nodule Cardiac: normal heart sounds Pulm: normal breath sounds B/L, no added breath sounds Abd: not distended, no tenderness Extremities: no edema, no signs of myxedema Laboratory Tests 05/11/24 14:43 TSH 1.04 Free T4 1.03 Laboratory Tests 05/16/25 08:44 TSH 1.04 EXAMINATION: US THYROID 05/16/25 HISTORY: E04.2 - Nontoxic multinodular goiter TECHNIQUE: Real-time grayscale ultrasound imaging was performed and images were reviewed. COMPARISON: Comparison is made with the prior examination dated 05/11/2024. FINDINGS: SIZE: The right thyroid lobe measures 5.7 x 2.5 x 3.0 cm. The left thyroid lobe measures 4.6 x 1.3 x 1.6 cm. The isthmus measures 2 mm. FLOW: Flow to the gland is normal. ECHOGENICITY: The echotexture of the gland is homogeneous. NODULES: Again seen is an 8 x 5 x 8 mm spongiform nodule at the upper pole of the right thyroid lobe and a 10 x 6 x 8 mm spongiform nodule at the upper pole of the left thyroid lobe. A dominant nodule in the mid to lower portion of the right thyroid lobe is again noted as described below: Nodule #: 1 Location: Mid to lower pole of the right thyroid lobe measuring 3.8 x 2.4 x 2.5 cm (previously 3.5 x 2.4 x 2.8 cm). Shape: Wider than tall (0 points) Margins: Smooth (0 points) Echotexture: Isoechoic (1 point) Composition: Solid (2 points) Calcifications: None (0 points) Total points: 3 TIRADS: TR3: Mildly suspicious. US/US thyroid IMPRESSION: Stable dominant nodule at the lower pole of the right thyroid lobe as described. US THYROID 05/11/24 CLINICAL INFORMATION: Nontoxic multinodular goiter. COMPARISON: Thyroid ultrasound 10/11/2020. Ultrasound-guided thyroid biopsy 10/07/2019. TECHNIQUE: Linear transducer grayscale and color Doppler examination with attention to the region of the thyroid. FINDINGS: SIZE: Measurements of the thyroid lobes and nodules are given in sagittal, anteroposterior and transverse dimensions respectively. Right Thyroid Lobe: 5.9 x 2.6 x 2.9 cm, volume 22.8 mL. Previously 5.6 x 2.5 x 3.0 cm, volume 23.0 mL. Parenchyma: The gland echotexture is homogeneous. Thyroid vascularity is increased. Left Thyroid Lobe: 4.8 x 1.3 x 1.6 cm, volume 5.3 mL. Previously 4.3 x 1.4 x 1.7 cm, volume 5.4 mL. Parenchyma: The gland echotexture is homogeneous. Thyroid vascularity is normal. Isthmus: 0.3 cm in maximum AP dimension. Previously 0.4 cm. Estimated total number of nodules greater than or equal to 1 cm: 1. 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 Location: Right superior. Size: 0.7 x 0.5 x 0.8 cm, volume 0.1 mL. Previously: 0.5 x 0.4 x 0.6 cm, volume 0.1 mL. Nodule characteristics: Composition: Mixed cystic and solid (1). Echogenicity: Hypoechoic (2). Shape: Not taller than wide (0). Margins: Smooth (0). Echogenic Foci: None (0). ACR TI-RADS total points: 3 ACR TI-RADS category: 3 Significant change in size (>/= 20% in 2 dimensions and minimal increase of 2 mm or 50% or greater increase in volume): no Change in features: no Change in ACR TI-RADS risk category: not applicable 2. Location: Right mid. Size: 2.8 x 2.4 x 3.5 cm, volume 12.2 mL. Previously: 3.9 x 2.5 x 2.6 cm, volume 13.3 mL. Nodule characteristics: Composition: Solid/almost completely solid (2). Echogenicity: Isoechoic (1). Shape: Not taller than wide (0). Margins: Smooth (0). Echogenic Foci: None (0). ACR TI-RADS total points: 3 ACR TI-RADS category: 3 Significant change in size (>/= 20% in 2 dimensions and minimal increase of 2 mm or 50% or greater increase in volume): no Change in features: no Change in ACR TI-RADS risk category: not applicable 3. Location: Left mid/inferior. Size: 0.9 x 0.6 x 1.1 cm, volume 0.3 mL. Previously: 0.8 x 0.5 x 0.6 cm, volume 0.1 mL. Nodule characteristics: Composition: Mixed cystic and solid (1). Echogenicity: Hypoechoic (2). Shape: Not taller than wide (0). Margins: Smooth (0). Echogenic Foci: None (0). ACR TI-RADS total points: 3 ACR TI-RADS category: 3 Significant change in size (>/= 20% in 2 dimensions and minimal increase of 2 mm or 50% or greater increase in volume): yes Change in features: no Change in ACR TI-RADS risk category: not applicable NODES: No lymphadenopathy is seen in the tissue surrounding the thyroid gland. US/US thyroid IMPRESSION: Diffusely heterogeneous, enlarged, multinodular thyroid gland. A 3.5 cm right mid TR 3 nodule redemonstrated and meets criteria for biopsy. Fine-needle aspiration recommended if not already performed. Correlation with prior biopsy results recommended to determine further management. 10/11/2020 US THYROID Right Thyroid Lobe: 5.6 x 2.5 x 3.0 cm, volume 23.0 mL. Parenchyma: The gland echotexture is heterogeneous. Thyroid vascularity is increased. Left Thyroid Lobe: 4.3 x 1.4 x 1.7 cm, volume 5.4 mL. Parenchyma: The gland echotexture is heterogeneous. Thyroid vascularity is normal. Isthmus: 0.4 cm in maximum AP dimension. RIGHT THYROID LOBE: There are 2 nodules seen. 1. Location: Superior. Size: 0.5 x 0.4 x 0.6 cm. Nodule characteristics: Hypoechoic and heterogeneous, smooth margin, no calcification and no intranodular flow. 2. Location: Mid and inferior. Size: 3.9 x 2.5 x 2.6 cm. Nodule characteristics: Heterogeneous, smooth margin with hypoechoic rind, no calcification and positive intranodular flow. ISTHMUS: No nodules. LEFT THYROID LOBE: There is 1 nodule seen. 1. Location: Middle. Size: 0.8 x 0.5 x 0.6 cm. Nodule characteristics: Hypoechoic and heterogeneous, smooth margin, no calcification and minimal peripheral flow. NODES: No lymphadenopathy is seen in the tissue surrounding the thyroid gland. [facility] Medical History (Updated 08/17/24 @ 14:47 by Rafael Sands MD) Vitamin D deficiency Celiac disease Non-toxic multinodular goiter Surgical History Hx of rotator cuff surgery Hx of laminectomy Family History Father HTN (hypertension) Mother HTN (hypertension) Physical Exam Vital Signs: Last Vital Signs Pulse 79 06/30/25 13:42 BP 112/78 06/30/25 13:42 Pulse Ox 95 06/30/25 13:42 Oxygen Delivery Method Room Air 06/30/25 13:42 BMI result Body Mass Index 34.7 Assessment & Plan Assessment & Plan (1) Non-toxic multinodular goiter: Code(s): E04.2 - Nontoxic multinodular goiter Category: Medical Plan: 64-year-old white female with a history of multinodular goiter with a dominant right thyroid nodule status post FNA in 2019 with benign cytology. 10/11/2020 showed stable/smaller size of the dominant right mid inferior lobe nodule measuring 3.9 X 2.5 X 2.6 cm. 05/11/2024, thyroid ultrasound showed even smaller size of the right mid lobe dominant nodule now measuring 2.8 X 2.4 X 3.5 cm. I reviewed the images myself. 05/16/2025: Ultrasound thyroid shows stable size of the right lower pole 3.8 cm solid isoechoic TR 3 nodule. Even though the left superior pole 1 cm nodule is commented on a spongiform coming to meet appears more like a solid hypoechoic nodule, however it remained stable in size, TR 4 category and we will continue to follow this. Biochemically euthyroid, most recent labs May 2025 We will plan to repeat ultrasound in 2 years Plan: -I have asked patient to call in a year from now to request for follow up appointment for June 2026 with ultrasound done in May 2026 Plan See above Patient Instructions: Please call us in fall/winter 2025 to request orders for ultrasound and appointment for June 2027 Coding Level of Care Code Est Pt Level 3 (19544) Diagnoses Non-toxic multinodular goiter E04.2
--- OUTSIDE RECORDS SUMMARY | 2025-06-30 18:08 | XMS_ITS | Patient Health Record ---
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 . . .; Duration: . Active Problems Problem Type SNOMED Code ICD Code Onset Dates Problem Status W/U Status Risk Notes Problem Bursitis (17483717) Bursitis (727.3) Active confirmed Problem Onychomycosis (254200187) Onychomycosis (110.1) Active confirmed Problem Myositis (31336407) Myositis (729.1) Active confirmed Problem Pain in limb (05997715) Pain in Limb (729.5) Active confirmed Problem Plantar fasciitis (191886242) Plantar Fasciitis (728.71) Active confirmed Plan Of Treatment Pending Test Test Name Order Date X ray : Foot, left 2V 01/01/201294478,[id number] TENDON SHEATH/LIGAMENT 0 02/03/201266666,[id number] TENDON SHEATH/LIGAMENT 0 02/27/201270126,[id number] TENDON SHEATH/LIGAMENT 0 01/01/2012 Insurance Providers Payer Name Payer Address Payer Phone Subscriber Number Group Number Insured Name Patient Relationship to Insured Coverage Start Date Coverage End Date [facility] [address] [place] [address] [id number] Liza Mesa Self - patient is the insured Medical (General) History Medical History History ICD Code anemia Arthritis back, hip, knee pain fibromyalgia osteoporosis psoriasis/eczema chicken pox celiac disease Surgical History Surgery Date(Month/Year) neck surgery 07/2001 rotator cuff tear repair 05/2002
== END 2025-06-30 14:18 | disposition home or self-care (01) ==
LOC: HO.ENCR 13:34
PROVIDERS: PCP Internal Medicine; Visit Provider Student in an Organized Health Care Education/Training Program
DX: E04.2 Nontoxic multinodular goiter (principal)
CPT/HCPCS: 99213

== ENCOUNTER → 2025-06-30 13:33 | Outpatient (BNVA) | payer OTHER, SELFPAY | PROVIDERS: PCP Internal Medicine; Visit Provider Student in an Organized Health Care Education/Training Program | DX: E04.2 Nontoxic multinodular goiter (principal) | CPT/HCPCS: 99212 ==